=== PATIENT | male | born 1965 | race Caucasian/White ===

== ENCOUNTER 2024-04-19 12:34 | Emergency (ER) | payer OTHER ==
[~2024-04-19] VITALS: Ht 175.3 cm; Wt 106.0 kg
[2024-04-19 14:51] VITALS: BP 146/86; PULSE 100; RESP 22; TEMP 98.5; O2SAT 95
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
[2024-04-19] MEDS ORDERED: IBUP-1455 PO (15:02)
[2024-04-19] MEDS ORDERED: CYCL-839 PO (15:02)
== END 2024-04-19 15:09 | disposition home or self-care (01) ==
LOC: ER 12:34
DX: M79.10 Myalgia, unspecified site (principal); F17.210 Nicotine dependence, cigarettes, uncomplicated; V89.2XXA Person injured in unspecified motor-vehicle accident, traffic, initial encounter; Y93.89 Activity, other specified; Y92.89 Other specified places as the place of occurrence of the external cause; Y99.8 Other external cause status